=== PATIENT | female | born 1930 | race Native Hawaiian/Other Pacific Islander ===

== ENCOUNTER 2016-06-01 13:10 | Outpatient (CLI) | payer OTHER ==
[~2016-06-01] VITALS: Ht 161.5 cm; Wt 72.6 kg
[2016-06-01 13:20] VITALS: BP 150/60; TEMP 97.7
== END 2016-06-01 13:42 | disposition home or self-care (01) ==
LOC: INF 13:10
DX: M81.0 Age-related osteoporosis without current pathological fracture (principal)
CPT/HCPCS: 96372; J0897

== ENCOUNTER 2016-12-07 11:26 | Outpatient (CLI) | payer OTHER ==
[~2016-12-07] VITALS: Ht 182.9 cm; Wt 1.8 kg
[2016-12-07 12:15] VITALS: BP 128/56; TEMP 98.7
== END 2016-12-07 12:27 | disposition home or self-care (01) ==
LOC: INF 11:26
DX: M81.0 Age-related osteoporosis without current pathological fracture (principal)
CPT/HCPCS: 36415; 82310; 96372; J0897